=== PATIENT | female | born 1980 | race Hispanic/Latino ===

== ENCOUNTER → 2018-02-15 16:55 | Outpatient (CLI) | payer OTHER, SELFPAY ==
[2018-02-21 10:03] LABS: HPV Reflexed? NOT INDICATED
== END ==
PROVIDERS: Family Provider Family Medicine; PCP Family Medicine; Referring Provider Family Medicine; Visit Provider Family Medicine
DX: Z01.419 Encounter for gynecological examination (general) (routine) without abnormal findings (principal)
CPT/HCPCS: 88175; G0145

== ENCOUNTER → 2020-02-19 17:05 | Outpatient (CLI) | payer OTHER, SELFPAY ==
[2016-11-19 16:35] VITALS: BMI 27.3
--- NOTE | 2020-02-19 17:11 | RAD_ITS ---
STUDY: X-RAY - RIGHT WRIST REASON FOR EXAM: Female, 40 years old. Right wrist pain around snuffbox x 5 months -- repetitive motion at work with hands/wrist TECHNIQUE: 4 view(s) of the wrist were obtained. COMPARISON: None. FINDINGS: Normal visualized distal radius and ulna. Normal radiocarpal articulation. Normal distal radioulnar articulation. Normal carpal bones. Normal carpal articulations. Normal carpometacarpal articulation of the thumb. Normal second through fifth carpometacarpal articulations. Normal visualized metacarpal bones. The soft tissue structures are unremarkable. RAD/Wrist min 3 Views IMPRESSION: Normal x-ray examination of the wrist. Electronically Signed: Maurice Pillai DO at 0:00 EST Tel [phone], Service support ,
== END ==
PROVIDERS: PCP Family Medicine; Referring Provider Family Medicine; Visit Provider Family Medicine
DX: M25.531 Pain in right wrist (principal)
CPT/HCPCS: 73110

== ENCOUNTER → 2020-10-01 | Outpatient (CLI) | payer OTHER, SELFPAY ==
[2016-11-19 16:35] VITALS: BMI 27.3
[2020-10-01 20:49] LABS: Probe Check PASS
== END | disposition home or self-care (01) ==
LOC: LABSPEC 15:03
PROVIDERS: PCP Family Medicine; Referring Provider Family Medicine; Visit Provider Family Medicine
DX: Z71.84 Encounter for health counseling related to travel (principal)
CPT/HCPCS: 87635; U0005; U0003